=== PATIENT | male | born 1955 | race Caucasian/White ===

== ENCOUNTER 2023-03-15 08:12 | Outpatient (CLI) | payer BC, OTHER ==
[~2023-03-15] VITALS: Ht 165.1 cm; Wt 67.0 kg
[2023-03-15] VITALS (7 sets, daily range): BP systolic 138–162; BP diastolic 76–82; PULSE 90–116; RESP 18; O2SAT 95–97
[2023-03-15] MEDS ORDERED: normal saline 500ml IV soln 500 ML IV ONE (09:35)
[2023-03-15] MEDS ORDERED: aminophylline 250mg/10ml inj. IV PRN (09:35)
[2023-03-15] MEDS ORDERED: regadenoson 0.4mg/5ml syringe IV ONE (09:35)
[2023-03-15] MEDS ORDERED: nitroGLYCERIN 0.4mg SUBLingual tab SL PRN (09:40)
== END 2023-03-15 23:59 | disposition home or self-care (01) ==
LOC: RAD 08:12
PROVIDERS: ATTEND Internal Medicine Interventional Cardiology
DX: I69.319 Unspecified symptoms and signs involving cognitive functions following cerebral infarction (principal)
CPT/HCPCS: 78452; 93017; A9500; J2785; J7040; J0280

== ENCOUNTER 2024-12-24 15:23 | Emergency (ER) | payer BC, MEDICAID ==
[~2024-12-24] VITALS: Ht 170.2 cm; Wt 64.6 kg
[~2024-12-24 15:23] MED LIST: ASCO-10 PO; ASPI-1265 PO; ATOR-2 PO; DICL20GE TOP; DULO30CA52 PO; LEVE100S PO; LIDO1ADH78 TOP; METH1TAB32 PO; MIDA5SPR; NOR5T PO; ONDA-243 PO; ZINC220T3 PO; [UNRECOGNIZED DRUG - CODE] PO
[2024-12-24] MEDS: heparin sodium, porcine/PF 100unit/ml 5ML syringe IV STA ×2 (16:41→17:51)
--- NOTE | 2024-12-24 16:43 | Physician Documentation ---
History of Present Illness ~ General Chief Complaint: See Chief Complaint Stated Complaint: PICC LINE COMPLICATIONS Time Seen by MD: 15:50 Primary Medical Doctor: [facility] Chicho Hernández History of Present Illness Initial Comments Patient is seen today with complaints of his PICC line that was just placed yesterday not been able to flush. Patient did have PICC line placed here yesterday and was started on Zerbaxa antibiotic for treatment of pyelonephritis and sepsis. Patient states he was able to receive his dose of IV antibiotics this morning but is due for another dose soon and the PICC line in right arm will not/. They have no other concern or complaint at this time. Medication Reconciliation Allergies: Coded Allergies: tramadol (Verified Allergy, Unknown, 12/24/24) Scheduled Amlodipine Besylate (Amlodipine Besylate), 5 MG PO DAILY Ascorbic Acid (Vitamin C), 1 TAB PO DAILY, (Reported) Aspirin (Aspirin), 1 TAB PO DAILY, (Reported) Atorvastatin Calcium (Atorvastatin Calcium), 1 TAB PO DAILY, (Reported) Diclofenac Sodium (Voltaren Arthritis Pain), 2 GM TOP BID, (Reported) Duloxetine HCl (Duloxetine HCl), 2 CAP PO DAILY, (Reported) Levetiracetam (Keppra), 5 ML PO BID, (Reported) Lidocaine (Lidocaine), 1 PATCH TOP DAILY, (Reported) Methenamine Hippurate (Methenamine Hippurate), 1 TAB PO HS, (Reported) Vitamin D3/Folic Acid (Noxifol-D3 2,500 Unit-1 mg Tab), 1,000 UNITS PO DAILY, (Reported) Zinc Sulfate (Zinc), 1 TAB PO DAILY, (Reported) Scheduled PRN Midazolam (Nayzilam), 1 SPR NA PRN PRN for seizures, (Reported) ONDANSETRON ODT 4mg tablet (Ondansetron Odt), 4 MG PO Q6H PRN for nausea/vomiting Past Medical History Past Medical History: Sleep Apnea, GERD, Kidney Stones, UTI, Arthritis, Panic Disorder Patient History: Diabetes mellitus FHx: atrial fibrillation Pacemaker Alcohol Use: None Drug Use: none Review of Systems Constitutional: Denies: chills, fever, weakness Eyes: Denies: pain, blurred vision ENT: Denies: ear pain, nose pain, throat pain, mouth pain Respiratory: Denies: cough, shortness of breath Cardiovascular: Denies: chest pain, palpitations Gastrointestinal: Denies: abdominal pain, nausea, vomiting Genitourinary: Denies: burning, dysuria Male Genitalia: Denies: penile discharge, testicular pain Neurological: Denies: headache, dizziness Musculoskeletal: Denies: pain, swelling Integumentary: Denies: rash, lesions Allergic/Immunologic: Denies: hives, itching Hematologic/Lymphatic: Denies: no symptoms reported Psychiatric: Denies: depression, anxiety Physical Exam Physical Exam Vital Signs: Temperature: 97.5, Source: Temporal, Heart Rate: 65, Respiratory Rate: 16, BP: 116/49, Pulse Oximetry: 98, Weight: 64.600 Oxygen Flow Rate: 0 Physical Exam General: Awake and Alert, no acute distress. Patient is in a wheelchair. HEENT: Conjunctiva pink, Sclera clear, Mucus Membranes moist. Neck: Supple without masses and tenderness. Resp: Unlabored. Lungs clear to auscultation bilaterally. Heart: Regular Rate and rhythm, normal S1 and S2 without murmur, rub or gallop. Abdomen: Soft and non tender no organomegaly Extremities: No cyanosis,clubbing or edema. Skin: Warm and Dry. Progress Results/Orders Results/Orders Completed Orders - ERIC DOZIER MD Tpa-Cathflo 2mg/2ml Iv Flush (Activase, (12/24/24 19:10) Tpa-Cathflo 2mg/2ml Iv Flush (Activase, (12/24/24 19:30) Medications Received in ER Medications (Trade) Dose Ordered Sig/Tere Route PRN Reason Start Time Stop Time Status Last Admin Dose Admin (heparin 100 unit/ml 5ml/PF syringe) 250 unit ONCE STAT IV 12/24/24 17:49 12/24/24 17:52 DC 12/24/24 17:51 250 UNIT (Activase, CathFlo inj. IV flush) 2 mg ONCE ONCE ICATH 12/24/24 19:10 12/24/24 19:11 DC 12/24/24 19:45 2 MG Vital Signs 12/24/24 12/24/24 15:29 20:00 Temp 97.5 97.5 Pulse 65 69 Resp 16 16 B/P (MAP) 116/49 149/59 (89) Pulse Ox 98 96 O2 Flow Rate 0 0 Medical Decision Making Findings Patient is seen today with complaints of his PICC line that was just placed yesterday not been able to flush. Patient did have PICC line placed here yesterday and was started on Zerbaxa antibiotic for treatment of pyelonephritis and sepsis. Patient states he was able to receive his dose of IV antibiotics this morning but is due for another dose soon and the PICC line in right arm will not/. They have no other concern or complaint at this time. We did try to use heparin as well as tPA to help flush the line without success. Hospitalist was consulted and patient will be admitted and IV started for administration of Zerbaxa antibiotic. Dr. Dozier receiving care of patient: After discussing with hospitalist and patient it seems that patient only has two more days of antibiotics and has a home health nurse coming in the morning. She has a good peripheral line and he had not feel PICC line that has necessary and patient is comfortable with this plan. We will discharge with peripheral line in place with instructions return for any complications. Departure Disposition: HOME / SELF CARE / HOMELESS Impression: Primary Impression: Obstructive uropathy Additional Impression: UTI (urinary tract infection) Qualified Codes: N10 - Acute pyelonephritis Condition: Stable Discharge Instructions: Urinary Tract Infection, Adult Additional Instructions: We are unable to flush your PICC line with tPA today. Peripheral line was placed in his functional. Police have home health nurse use this line for administration of your antibiotic. Return for any complications. Referrals: NO PRIMARY CARE PROVIDER (PCP) Education Educated: Patient Educated regarding: treatment, need for follow up Signature Scribe Signature: No scribe Attestation: The note accurately reflects work and decisions made by me.Eric Dozier MD 12/25/24 01:04 No [email or web address] Duarte Dec 24, 2024 16:43 ERIC DOZIER MD Dec 25, 2024 01:03
[2024-12-24] MEDS ORDERED: tPA-cathflo 2mg/2ml IV flush 2 MG/2 ML VIAL IVF ONE (19:30)
[2024-12-24] MEDS: tPA-cathflo 2mg/2ml IV flush 2 MG/2 ML VIAL ICATH ONE (19:45)
[2024-12-25 01:11] VITALS: TEMP 97.5
== END 2024-12-25 01:14 | disposition home or self-care (01) ==
LOC: ER 15:24
DX: N13.9 Obstructive and reflux uropathy, unspecified (principal); N39.0 Urinary tract infection, site not specified; M19.90 Unspecified osteoarthritis, unspecified site; E11.9 Type 2 diabetes mellitus without complications; G47.30 Sleep apnea, unspecified; Z88.5 Allergy status to narcotic agent; Z79.82 Long term (current) use of aspirin
CPT/HCPCS: 96374; 99283; J1642; J2997